=== PATIENT | female | born 1975 | race Caucasian/White ===

== ENCOUNTER 2022-08-31 11:09 | Emergency (ER) | payer BC ==
[~2022-08-31] VITALS: Ht 170.2 cm; Wt 74.8 kg
--- NOTE | 2022-08-31 11:23 | NUR ---
[email or web address], medical screening exam in progress
[2022-08-31] MEDS ORDERED: ACETAMINOPHEN ES 500 MG TABLET PO ONE (11:30)
[2022-08-31] MEDS ORDERED: ACETAMINOPHEN ES 500 MG TABLET ONE (11:32)
[2022-08-31] MEDS ORDERED: SULF1TAB48 PO (12:08)
[2022-08-31] MEDS ORDERED: MUPI22OI2 TP (12:08)
--- NOTE | 2022-08-31 12:21 | NUR ---
Patient discharged to home in stable condition by Dr Cary. Written and verbal after care instructions given to patient. Patient verbalized understanding and compliance of instructions. Stressed follow up with primary doctor or return to ER for worsening s/s.
[2022-08-31 12:25] VITALS: BP 111/60
== END 2022-08-31 12:21 | disposition home or self-care (01) ==
LOC: ER 11:13
DX: L72.3 Sebaceous cyst (principal); R50.9 Fever, unspecified; Z79.899 Other long term (current) drug therapy
CPT/HCPCS: 70450; A4663; A9150